=== PATIENT | male | born 1945 | race Caucasian/White ===

== ENCOUNTER 2019-03-07 11:45 | Inpatient (IN) | payer OTHER ==
[~2019-03-07] VITALS: Ht 177.8 cm; Wt 78.0 kg
[2019-03-07] MEDS ORDERED: LASIX20 MG PO (14:37)
[2019-03-07] MEDS ORDERED: SYNTHROID50 MCG PO (14:37)
[2019-03-07] MEDS ORDERED: METOPROLOL SUC200 MG PO (14:37)
[2019-03-07] MEDS ORDERED: ENALAPRIL MALE2.5 MG PO (14:38)
[2019-03-07] MEDS ORDERED: PRAVASTATIN SOD10 MG PO (14:38)
[2019-03-07] MEDS ORDERED: ADULT ASPIRIN81 MG PO (15:24)
[2019-03-07] MEDS ORDERED: VASOTEC20 M1 PO (15:33)
[2019-03-07] MEDS ORDERED: ALDACTONE25 MG PO (15:34)
== END 2019-03-21 19:05 | disposition home or self-care (01) | DRG 333 ==
LOC: SURH 03-12 08:45 → SURG 03-19 09:31 → O/R 03-19 09:31 → SURH 03-19 11:45 → SURG 03-19 19:02
PROVIDERS: ADMIT Surgery
PROC: 0WJG4ZZ Inspection of Peritoneal Cavity, Percutaneous Endoscopic Approach (ICD-10-PCS; 2019-03-19)
PROC: 3E0T3BZ Introduction of Anesthetic Agent into Peripheral Nerves and Plexi, Percutaneous Approach (ICD-10-PCS; 2019-03-19)
PROC: 0DJD8ZZ Inspection of Lower Intestinal Tract, Via Natural or Artificial Opening Endoscopic (ICD-10-PCS; 2019-03-19)
PROC: 0DTP8ZZ Resection of Rectum, Via Natural or Artificial Opening Endoscopic (ICD-10-PCS; principal; 2019-03-19 17:30)
DX: D12.8 Benign neoplasm of rectum (principal); K40.30 Unilateral inguinal hernia, with obstruction, without gangrene, not specified as recurrent